=== PATIENT | female | born 1965 | race Caucasian/White ===

== ENCOUNTER 2018-03-11 23:30 | Emergency (ER) | payer BC ==
[~2018-03-11] VITALS: Ht 162.6 cm; Wt 71.2 kg
[~2018-03-11 23:30] MED LIST: [UNRECOGNIZED DRUG - CODE] PO
--- NOTE | 2018-03-11 23:45 | NUR ---
:ROBERT AT BEDSIDE EVALUATE PATIENT .
[2018-03-12] MEDS ORDERED: CEFTRIAXONE 1 G VIAL IM ONE
[2018-03-12] MEDS ORDERED: CEFTRIAXONE 1 G VIAL ONE (00:13)
[2018-03-12] MEDS ORDERED: TDAP DIPH,PERTUSS,TET VAC/PF 0.5 ML DISP.SYRIN IM ONE ×2 (00:15)
--- NOTE | 2018-03-12 00:20 | NUR ---
PATIENT IN BED AAOX4/MAEX4. NO RESPIRATORY DISTRESS AND DENEIS PAIN .RIGHT BIG TOE SWELLING AND REDNESS NOTED , PER PATIENT SHE GOT IT AFTER A NAIL CARE DONE .
--- NOTE | 2018-03-12 00:50 | NUR ---
Patient discharged to home in stable conditon. Written and verbal after care instructions given. Patient verbalizes understanding of instructions.AMBULATORY ,NO RESPIRATORY DISTRESS NOTED . WENT HOME WITH DAUGHTER .
[2018-03-12 01:16] VITALS: BP 115/78
== END 2018-03-12 01:00 | disposition home or self-care (01) ==
LOC: ER 23:33
DX: L03.031 Cellulitis of right toe (principal); J45.909 Unspecified asthma, uncomplicated; Z88.0 Allergy status to penicillin
CPT/HCPCS: 90471; 90715; 96372; 99284; A4663; J0696

== ENCOUNTER 2020-09-23 15:01 | Emergency (ER) | payer BC ==
[~2020-09-23] VITALS: Ht 162.6 cm; Wt 77.1 kg
[2020-09-23] MEDS ORDERED: PRED20TA PO (15:40)
[2020-09-23 16:39] VITALS: BP 120/75
== END 2020-09-23 16:15 | disposition home or self-care (01) ==
LOC: ER 15:03
DX: J45.909 Unspecified asthma, uncomplicated (principal); T78.40XA Allergy, unspecified, initial encounter; X58.XXXA Exposure to other specified factors, initial encounter; Z88.0 Allergy status to penicillin
CPT/HCPCS: A4663

== ENCOUNTER 2021-01-01 18:36 | Emergency (ER) | payer BC ==
[~2021-01-01] VITALS: Ht 165.1 cm; Wt 79.4 kg
[~2021-01-01 18:36] MED LIST changes: +PRED20TA PO
--- NOTE | 2021-01-01 19:10 | NUR ---
MD Mcgovern in room to do MSE.
[2021-01-01] MEDS ORDERED: IV NORMAL SALINE 1000 ML BAG IV ONE (19:15)
[2021-01-01] MEDS ORDERED: diphenhydrAMINE 50 MG/1 ML VIAL IV ONE (19:15)
[2021-01-01] MEDS ORDERED: METOCLOPRAMIDE HCL 10 MG/2 ML VIAL IV ONE (19:15)
[2021-01-01] MEDS ORDERED: KETOROLAC TROMETHAMINE 30 MG INJ IVP ONE (19:15)
[2021-01-01] MEDS ORDERED: diphenhydrAMINE 50 MG/1 ML VIAL ONE (19:21)
[2021-01-01] MEDS ORDERED: KETOROLAC TROMETHAMINE 30 MG INJ ONE (19:21)
[2021-01-01] MEDS ORDERED: METOCLOPRAMIDE HCL 10 MG/2 ML VIAL ONE (19:22)
--- NOTE | 2021-01-01 19:45 | NUR ---
marketing technologist in room to draw blood for labs.
[2021-01-01 20:18] LABS: HEMATOCRIT 41.3 % (31.2-41.9); MEAN CORPUSCULAR VOLUME 96.7 fL (75.5-95.3); PLATELET COUNT (AUTO) 234 K/uL (179-408)
[2021-01-01 20:19] LABS: CREATININE 0.9 mg/dL (0.6-1.3); POTASSIUM 3.3 mmol/L (3.5-5.1)
[2021-01-01 20:24] LABS: BILIRUBIN,TOTAL 0.1 mg/dL (0.2-1.0); MAGNESIUM 2.1 mg/dL (1.8-2.4); TOTAL PROTEIN, SERUM 7.1 g/dL (6.4-8.2)
[2021-01-01] MEDS ORDERED: METO-295 PO (21:05)
[2021-01-01] MEDS ORDERED: NAPR-1164 PO (21:05)
[2021-01-01] MEDS ORDERED: DIPH25CA83 PO (21:05)
--- NOTE | 2021-01-01 21:09 | NUR ---
Patient discharged to home in stable condition. Written and verbal after care instructions given. Patient verbalizes understanding of instructions. Stressed follow up or return to ER for worsening s/s. Ambulated from ER with stable gait. All belongings with patient; PIV removed prior to d/c. Driven home by taxi. VSS
[2021-01-01 21:10] VITALS: BP 127/81
== END 2021-01-01 21:11 | disposition home or self-care (01) ==
LOC: ER 18:39
DX: G43.909 Migraine, unspecified, not intractable, without status migrainosus (principal); J45.909 Unspecified asthma, uncomplicated
CPT/HCPCS: 36415; 80053; 83735; 85025; 96361; 96374; 96375; 99284; J1200; J1885; J2765; A4663; J7030

== ENCOUNTER 2021-07-26 10:30 | Emergency (ER) | payer BC ==
[~2021-07-26] VITALS: Ht 162.6 cm; Wt 79.4 kg
[~2021-07-26 10:30] MED LIST changes: +DIPH25CA83 PO; +METO-295 PO; +NAPR-1164 PO
[2021-07-26 12:07] LABS: HEMATOCRIT 40.1 % (31.2-41.9); MEAN CORPUSCULAR HEMOGLOBIN 32.2 uug (24.7-32.8); MEAN CORPUSCULAR VOLUME 94.3 fL (75.5-95.3); PLATELET COUNT (AUTO) 268 K/uL (179-408)
[2021-07-26 12:16] LABS: BILIRUBIN,DIRECT 0.1 mg/dL (0.0-0.2); BILIRUBIN,TOTAL 0.4 mg/dL (0.2-1.0); CREATININE 0.7 mg/dL (0.6-1.3); POTASSIUM 3.7 mmol/L (3.5-5.1); TOTAL PROTEIN, SERUM 7.6 g/dL (6.4-8.2)
--- NOTE | 2021-07-26 12:46 | NUR ---
PT WAS EVALUATED BY DR KEANE. PT WAS D/C'd TO HOME. D/C INSTRUCTIONS GIVEN TO THE PT BY DR KEANE.
[2021-07-26 12:47] VITALS: BP 124/88
== END 2021-07-26 12:51 | disposition home or self-care (01) ==
LOC: ER 10:35
DX: J45.909 Unspecified asthma, uncomplicated (principal); R00.2 Palpitations; Z86.16 Personal history of COVID-19; Z87.11 Personal history of peptic ulcer disease; Z88.0 Allergy status to penicillin
CPT/HCPCS: 36415; 70030-TC; 71045; 83735; 84443; 85025; 93005; A4663

== ENCOUNTER 2022-10-09 18:30 | Emergency (ER) | payer BC ==
[~2022-10-09] VITALS: Ht 162.6 cm; Wt 79.4 kg
--- NOTE | 2022-10-09 18:38 | NUR ---
[email or web address], medical screening exam in progress
[2022-10-09] MEDS ORDERED: LORAZEPAM 0.5 MG TABLET PO ONE (18:45)
[2022-10-09] MEDS ORDERED: ASPIRIN 81 MG TAB.CHEW PO ONE (18:45)
[2022-10-09] MEDS ORDERED: ASPIRIN 81 MG TAB.CHEW ONE (18:56)
[2022-10-09] MEDS ORDERED: LORAZEPAM 1 MG TABLET ONE (18:57)
--- NOTE | 2022-10-09 19:05 | NUR ---
Labs at bedside
[2022-10-09 19:15] LABS: HEMATOCRIT 40.9 % (31.2-41.9); MEAN CORPUSCULAR HEMOGLOBIN 31.9 uug (24.7-32.8); MEAN CORPUSCULAR VOLUME 95.8 fL (75.5-95.3); PLATELET COUNT (AUTO) 243 K/uL (179-408)
[2022-10-09 19:30] LABS: CARBON DIOXIDE 24 mmol/L (21-32); CHLORIDE 106 mmol/L (98-107); CREATININE 0.9 mg/dL (0.6-1.3); GLUCOSE 135 mg/dL (74-106); POTASSIUM 3.2 mmol/L (3.5-5.1); UREA NITROGEN, BLOOD 11 mg/dL (7-18)
--- NOTE | 2022-10-09 19:35 | NUR ---
Patient walked to the bathroom independently. Activity tolerated well. No signs of distress noted.
[2022-10-09] MEDS ORDERED: POTASSIUM CHLORIDE 20 MEQ TAB.PRT.SR ONE (19:59)
[2022-10-09] MEDS ORDERED: POTASSIUM CHLORIDE 20 MEQ TAB.PRT.SR PO ONE (20:00)
[2022-10-09] MEDS ORDERED: LORA0.5T48 PO (20:02)
--- NOTE | 2022-10-09 21:40 | NUR ---
Patient discharged to home in stable condition. Written and verbal after care instructions given. Patient verbalizes understanding of instructions. Instructed patient not to drive. Stressed follow up or return to ER for worsening s/s.
[2022-10-09 21:41] VITALS: BP 115/75
== END 2022-10-09 21:41 | disposition home or self-care (01) ==
LOC: ER 18:32
DX: R42 Dizziness and giddiness (principal); R00.2 Palpitations; R07.89 Other chest pain; G43.909 Migraine, unspecified, not intractable, without status migrainosus; J45.909 Unspecified asthma, uncomplicated; Z88.0 Allergy status to penicillin; Z79.899 Other long term (current) drug therapy
CPT/HCPCS: 36415; 71045; 84484; 85025; 93005; A4663

== ENCOUNTER 2023-08-05 08:08 | Emergency (ER) | payer BC ==
[~2023-08-05] VITALS: Ht 162.6 cm; Wt 83.9 kg
[~2023-08-05 08:08] MED LIST changes: +LORA0.5T48 PO
[2023-08-05 08:18] VITALS: O2SAT 97
[2023-08-05] MEDS ORDERED: IPRATROPIUM BROMIDE 0.5 MG/2.5 ML NEBU ONE (09:02)
[2023-08-05] MEDS ORDERED: ALBUTEROL SULFATE 2.5 MG/3 ML NEBU ONE (09:02)
[2023-08-05] MEDS: IPRATROPIUM BROMIDE 0.5 MG/2.5 ML NEBU NEB ONE (09:06)
[2023-08-05] MEDS: ALBUTEROL SULFATE 2.5 MG/3 ML NEBU NEB ONE (09:06)
[2023-08-05 09:08] LABS: BASOPHILS % (AUTO) 0.6 % (0.0-2.0); EOSINOPHILS # (AUTO) 0.1 K/uL (0.0-0.7); EOSINOPHILS % (AUTO) 1.3 % (0.0-7.0); HEMOGLOBIN 13.2 g/dL (10.9-14.3); LYMPHOCYTES # (AUTO) 1.8 K/uL (0.8-4.8); LYMPHOCYTES % (AUTO) 24.7 % (20.5-51.5); MEAN CORPUSCULAR HEMOGLOBIN 31.9 uug (24.7-32.8); MEAN CORPUSCULAR HGB CONC 34 g/dL (32.3-35.6); MEAN CORPUSCULAR VOLUME 94.6 fL (75.5-95.3); MONOCYTES # (AUTO) 0.8 K/uL (0.1-1.30); MONOCYTES % (AUTO) 10.7 % (0.0-11.0); NEUTROPHILS # (AUTO) 4.5 K/uL (1.8-8.9); NEUTROPHILS % (AUTO) 62.7 % (38.5-71.5); PLATELET COUNT (AUTO) 194 K/uL (179-408); RED BLOOD CELL COUNT(AUTO) 4.12 MIL/uL (3.63-4.92); RED CELL DISTRIBUTION WIDTH 13.9 % (12.3-17.7); WHITE BLOOD COUNT (AUTO) 7.2 K/uL (3.8-11.8)
[2023-08-05 09:13] LABS: DIFFERENTIAL COMMENT 1
[2023-08-05 09:29] LABS: ALANINE AMINOTRANSFERASE 22 U/L (14-59); ALBUMIN 3.5 g/dL (3.4-5.0); ALKALINE PHOSPHATASE 59 U/L (50-136); ASPARTATE AMINOTRANSFERASE 18 U/L (15-37); BILIRUBIN,DIRECT 0.1 mg/dL (0.0-0.2); BILIRUBIN,TOTAL 0.4 mg/dL (0.2-1.0); CALCIUM 8.7 mg/dL (8.5-10.1); CARBON DIOXIDE 29 mmol/L (21-32); CHLORIDE 106 mmol/L (98-107); CREATININE 0.8 mg/dL (0.6-1.3); GLUCOSE 107 mg/dL (74-106); NT-PRO BNP 31 pg/mL (0-125); POTASSIUM 3.6 mmol/L (3.5-5.1); SODIUM SERUM 142 mmol/L (136-145); TOTAL PROTEIN, SERUM 7.4 g/dL (6.4-8.2); UREA NITROGEN, BLOOD 8 mg/dL (7-18)
[2023-08-05] MEDS ORDERED: PRED50TA PO (10:05)
[2023-08-05] MEDS ORDERED: AZIT500T4 PO (11:03)
== END 2023-08-05 10:30 | disposition home or self-care (01) ==
LOC: ER 08:08
DX: J45.901 Unspecified asthma with (acute) exacerbation (principal); G43.909 Migraine, unspecified, not intractable, without status migrainosus; Z79.899 Other long term (current) drug therapy; Z88.0 Allergy status to penicillin
CPT/HCPCS: 36415; 71045; 84484; 85025; A4606; A4663; J3590

== ENCOUNTER 2024-05-13 18:35 | Emergency (ER) | payer BC, OTHER ==
[~2024-05-13] VITALS: Ht 162.6 cm; Wt 83.9 kg
[~2024-05-13 18:35] MED LIST changes: +AZIT500T4 PO; +PRED50TA PO
[2024-05-13] MEDS ORDERED: IBUPROFEN 400 MG TABLET ONE (19:13)
[2024-05-13] MEDS ORDERED: ACETAMINOPHEN 500 MG TABLET ONE (19:13)
[2024-05-13] MEDS: ACETAMINOPHEN 500 MG TABLET PO ONE (19:17)
[2024-05-13] MEDS: IBUPROFEN 400 MG TABLET PO ONE (19:17)
[2024-05-13 19:48] VITALS: BP 110/74; TEMP 98; O2SAT 100
== END 2024-05-13 19:49 | disposition home or self-care (01) ==
LOC: ER 18:36
DX: S76.312A Strain of muscle, fascia and tendon of the posterior muscle group at thigh level, left thigh, initial encounter (principal); J45.909 Unspecified asthma, uncomplicated; G43.909 Migraine, unspecified, not intractable, without status migrainosus; Z79.52 Long term (current) use of systemic steroids; Z79.899 Other long term (current) drug therapy; Z88.0 Allergy status to penicillin; X58.XXXA Exposure to other specified factors, initial encounter; Y93.89 Activity, other specified; Y92.89 Other specified places as the place of occurrence of the external cause; Y99.8 Other external cause status
CPT/HCPCS: A4606; A4663; A9150